=== PATIENT | female | born 1990 | race Caucasian/White ===

== ENCOUNTER 2017-06-18 11:03 | Emergency (ER) | payer MEDICAID, OTHER ==
[2017-06-18 11:24] VITALS: BMI 71.8
--- NOTE | 2017-06-18 12:28 | C.PDOC ---
History Of Present Illness PERSIST MARTINEZ X SEV YEARS. PS HAS HAD MIGRAINES BUT HAVE BEEN WORSENING X 2-3 YRS. PRIOR RELIEF W OTC MEDS BUT NOW NO LONGER. PS S/P MRI @ [facility] [place] A[place], PS SAW DR Aydin ROMANO IN [place] FOR SAME BUT "I DONT SEE HIM ANYMORE BC HE WASNT HELPING ME". NO RELIEF W IMITREX DESPITE MULT INCREASED DOSES. FRONTAL MARTINEZ SIM TO PRIOR. +NAUSEA. NO TRAUMA. +PHOTOPHOBIA. SP EXCEDRIN MIGRAINE RN CHARGE EXAM MILD DIST NONTOXIC HEENT PHOTOPHOBIA NECK SUPPLE NEURO INTACT REMAINDER NEG Time Seen by Provider: 06/18/17 12:00 Chief Complaint (Nursing): Headache History Per: Patient History/Exam Limitations: no limitations Onset/Duration Of Symptoms: Days Current Symptoms Are (Timing): Still Present Severity: Moderate Past Medical History Reviewed: Historical Data, Nursing Documentation, Vital Signs Vital Signs: Last Vital Signs Temp 97.8 F 06/18/17 11:24 Pulse 84 06/18/17 11:24 Resp 20 06/18/17 11:24 BP 127/80 06/18/17 11:24 Pulse Ox 96 06/18/17 14:03 - Medical History PMH: Asthma Other Surgeries: Hx of surgeries Family History: States: No Known Family Hx - Social History Hx Alcohol Use: Yes Hx Substance Use: No - Immunization History Hx Tetanus Toxoid Vaccination: No Hx Influenza Vaccination: Yes Hx Pneumococcal Vaccination: No Review Of Systems Except As Marked, All Systems Reviewed And Found Negative. Eyes: Positive for: Other (photophobia) Gastrointestinal: Positive for: Nausea Neurological: Positive for: Headache Physical Exam - Physical Exam Appears: Non-toxic, Other (mild distress) Skin: Normal Color, Warm Head: Atraumatic, Normacephalic Eye(s): bilateral: Other (photophobia) Neck: Supple Neurological/Psych: Oriented x3, Normal Speech ED Course And Treatment O2 Sat by Pulse Oximetry: 96 (RA) Pulse Ox Interpretation: Normal Progress - Re-Evaluation Re-evaluation Note: 06/18/17 14:03 PENDING CALLBACK NEURO COREMAKER BENCH DR POWER 06/18/17 14:17 MUCH IMPROVED, ASYMPT D/W DR POWER AWARE OF ER MANAGEMENT. ADVISES DC MAGNESIUM OXIDE 400 MG BID FU OFFICE - Data Reviewed Data Reviewed: Diagnostic imaging, Old records - Continuity of Care Discussed pt. case with business intelligence consultant/specialty: Neurology Medical Decision Making Medical Decision Making: Plan: --CT-Head --Reglan IV --Toradol IV --Decadron IV --IV Fluids -- POC Test Disposition Counseled Patient/Family Regarding: Studies Performed, Diagnosis, Need For Followup, Rx Given - Disposition Referrals: Cheikh Power MD [Staff Provider] - Disposition: HOME/ ROUTINE Disposition Time: 14:22 Condition: IMPROVED Prescriptions: Magnesium Oxide [Mag-Ox] 400 mg PO BID #30 tab Instructions: Migraine Headache (DC) Forms: [employer] ([place]) - Clinical Impression Clinical Impression: Migraine - Scribe Statement The provider has reviewed the documentation as recorded by the Jessicaibe Isabella Pickett Provider Attestation: All medical record entries made by the Scribe were at my direction and personally dictated by me. I have reviewed the chart and agree that the record accurately reflects my personal performance of the history, physical exam, medical decision making, and the department course for this patient. I have also personally directed, reviewed, and agree with the discharge instructions and disposition.
[2017-06-18] MEDS ORDERED: Dexamethasone 4 mg/1 ml IVP STA (12:35)
[2017-06-18] MEDS ORDERED: Magnesium Sulfate 1 gm in D5W 1 GM/100 ML BAG IVPB STA (12:35)
[2017-06-18] MEDS ORDERED: Sodium Chloride 0.9% 1,000 ML IV STA (12:35)
[2017-06-18] MEDS ORDERED: Dexamethasone 4 mg/1 ml ONE (12:54)
[2017-06-18] MEDS ORDERED: Magnesium Sulfate 1 gm in D5W 1 GM/100 ML BAG IVPB ONE (12:54)
--- NOTE | 2017-06-18 13:16 | CT ---
PROCEDURE: CT HEAD WITHOUT CONTRAST. HISTORY: HEADACHE COMPARISON: None available. TECHNIQUE: Axial computed tomography images were obtained through the head/brain without intravenous contrast. Radiation dose: Total exam DLP = 916.4 mGy-cm. This CT exam was performed using one or more of the following dose reduction techniques: Automated exposure control, adjustment of the mA and/or kV according to patient size, and/or use of iterative reconstruction technique. FINDINGS: HEMORRHAGE: No intracranial hemorrhage. BRAIN: No mass effect or edema. No atrophy or chronic microvascular ischemic changes. VENTRICLES: Unremarkable. No hydrocephalus. CALVARIUM: Unremarkable. PARANASAL SINUSES: Unremarkable as visualized. No significant inflammatory changes. MASTOID AIR CELLS: Unremarkable as visualized. No inflammatory changes. OTHER FINDINGS: None. IMPRESSION: No acute intracranial pathology.
[2017-06-18 14:37] VITALS: BP 123/69; PULSE 88; RESP 18; TEMP 98; O2SAT 100
== END 2017-06-18 14:37 | disposition home or self-care (01) ==
LOC: C.ER 11:03
DX: G43.909 Migraine, unspecified, not intractable, without status migrainosus (principal)
CPT/HCPCS: 70450; 96365; 96367; 96375; 99285; J1100; J1885; J2765; J3475; J7040